=== PATIENT | female | born 1995 | race Hispanic/Latino ===

== ENCOUNTER 2017-04-22 20:01 | Emergency (ER) | payer MEDICAID ==
[2017-04-22 21:16] VITALS: BP 129/84
--- NOTE | 2017-04-22 23:14 | XRay Report ---
FINAL REPORT EXAM: XR FOREARM LT HISTORY: swelling, pain and bruising L arm s/p GLF TECHNIQUE: Left forearm two views 2 images PRIORS: None. FINDINGS: Bone mineralization appears within normal limits. There is a transverse fracture of the distal radius. There are minimally displaced fractures of the radial and ulnar diaphyses as well. Soft tissue swelling is noted in the distal forearm. IMPRESSION: 1. Traumatic distal radius fracture. 2. Traumatic fractures of the diaphyses of the radius and ulna.
[2017-04-23] MEDS ORDERED: TORADOL IM ONE (00:34)
--- NOTE | 2017-04-23 00:38 | Emergency Department Report ---
ED Upper Extremity Inj HPI - General Chief Complaint: Extremity Injury, Upper Stated Complaint: FALL/LT ARM INJJRY Source: patient Mode of arrival: Ambulatory Limitations: No Limitations - History of Present Illness Initial Comments: This is a 20-year-old female well-nourished with nontoxic or ill in appearance but presents with left arm pain status post trip and fall at home 3 days ago. Patient states she try to break the fall by landing on her palm, left. Associated symptoms includes pain that is described as aching and a 10. Patient denies any numbness, tingling, decreased range of motion, swelling, pus , drainage, redness, nausea, vomiting, chest pain or shortness of breath. Patient denies any past medical history. Allergies to Prozac. Complaint: Injury to:: left, arm -: Gradual, days(s) (3) Other Extremity Injury: Arm: Left, Forearm: Left Other Injuries: none Place: home Severity scale (0 -10): 8 Improves With: none Worsens With: none Context: fall Associated Symptoms: denies other symptoms. denies: weakness, numbness, neck pain, suspects foreign body, nausea/vomiting, heard/felt popping sensat - Related Data Previous Rx's Medication Instructions Recorded Last Taken Type HYDROcodone/APAP 7.5-325 [Mutual 1 each PO Q8HR PRN #10 tablet 04/23/17 Unknown Rx 7.5/325] Allergies Allergy/AdvReac Type Severity Reaction Status Date / Time fluoxetine HCl [From Prozac] Allergy Unknown Verified 04/22/17 21:37 ED Review of Systems ROS: Stated complaint: FALL/LT ARM INJJRY Other details as noted in HPI Constitutional: denies: chills, fever Eyes: denies: eye pain, eye discharge, vision change ENT: denies: ear pain, throat pain Respiratory: denies: cough, shortness of breath, wheezing Cardiovascular: denies: chest pain, palpitations Endocrine: no symptoms reported Gastrointestinal: denies: abdominal pain, nausea, diarrhea Genitourinary: denies: urgency, dysuria, discharge Musculoskeletal: denies: back pain, joint swelling, arthralgia Skin: denies: rash, lesions Neurological: denies: headache, weakness, paresthesias Psychiatric: denies: anxiety, depression Hematological/Lymphatic: denies: easy bleeding, easy bruising ED Past Medical Hx - Past Medical History Previous Medical History?: No - Surgical History Past Surgical History?: No - Social History Smoking Status: Never Smoker Substance Use Type: None - Medications Home Medications: Home Medications Medication Instructions Recorded Confirmed Last Taken Type HYDROcodone/APAP 7.5-325 [Mutual 1 each PO Q8HR PRN #10 tablet 04/23/17 Unknown Rx 7.5/325] ED Physical Exam - General Limitations: No Limitations General appearance: alert, in no apparent distress - Head Head exam: Present: atraumatic, normocephalic, normal inspection - Eye Eye exam: Present: normal appearance, PERRL, EOMI. Absent: scleral icterus, conjunctival injection, nystagmus, periorbital swelling, periorbital tenderness Pupils: Present: normal accommodation - ENT ENT exam: Present: normal exam, normal orophraynx, mucous membranes moist, TM's normal bilaterally, normal external ear exam - Neck Neck exam: Present: normal inspection, full ROM. Absent: tenderness, meningismus, lymphadenopathy, thyromegaly - Respiratory Respiratory exam: Present: normal lung sounds bilaterally. Absent: respiratory distress, wheezes, rales, rhonchi, stridor, chest wall tenderness, accessory muscle use, decreased breath sounds, prolonged expiratory - Cardiovascular Cardiovascular Exam: Present: regular rate, normal rhythm, normal heart sounds. Absent: bradycardia, tachycardia, irregular rhythm, systolic murmur, diastolic murmur, rubs, gallop - GI/Abdominal GI/Abdominal exam: Present: soft, normal bowel sounds. Absent: distended, tenderness, guarding, rebound, rigid, diminished bowel sounds - Rectal Rectal exam: Present: deferred - Extremities Exam Extremities exam: Present: normal inspection, full ROM, tenderness, normal capillary refill. Absent: pedal edema, joint swelling, calf tenderness - Expanded Upper Extremity Exam Left General: Present: normal inspection Shoulder Exam: Present: normal inspection, full ROM. Absent: tenderness, swelling, abrasion, laceration, ecchymosis, deformity, crepidus, dislocation, erythema, tenderness over AC joint Upper Arm exam: Present: normal inspection, full ROM. Absent: tenderness, swelling, abrasion, laceration, ecchymosis, deformity, crepidus, dislocation, erythema Elbow exam: Present: normal inspection, full ROM. Absent: tenderness, swelling , abrasion, laceration, ecchymosis, deformity, crepidus, dislocation, erythema, effusion, pain w/ pronation/supination, tenderness over radial head Forearm Wrist exam: Present: normal inspection, full ROM, tenderness, other ( Normal pules. Skin warm. Normal ROM of digits. No numbness or tingling. ). Absent: swelling, abrasion, laceration, ecchymosis, deformity, dislocation, tenderness over anatomical snuff box, pain with axial thumb loading Hand Wrist exam: Present: normal inspection, full ROM, tenderness. Absent: swelling, abrasion, laceration, ecchymosis, deformity, crepidus, dislocation, erythema, amputation, nail avulsion, subungual hematoma Neuro motor exam: Present: wrist extension intact, thumb opposition intact, thumb IP flexion intact, thumb adduction intact, fingers 2-5 abduction intact Neurosensory exam: Present: 2-point discrimination, radial nerve intact, ulnar nerve intact, median nerve intact Vascular: Present: vascular compromise, normal capillary refill, radial pulse, brachial pulse, ulnar pulse - Back Exam Back exam: Present: normal inspection, full ROM. Absent: tenderness, CVA tenderness (R), CVA tenderness (L), muscle spasm, paraspinal tenderness, vertebral tenderness, rash noted - Neurological Exam Neurological exam: Present: alert, oriented X3, CN II-XII intact, normal gait, reflexes normal - Psychiatric Psychiatric exam: Present: normal affect, normal mood - Skin Skin exam: Present: warm, dry, intact, normal color. Absent: rash ED Course Vital Signs 04/22/17 04/22/17 21:15 21:37 Temperature 98.4 F 98.4 F Pulse Rate 88 88 Respiratory 16 16 Rate Blood Pressure 129/84 Blood Pressure 129/84 [Left] O2 Sat by Pulse 99 100 Oximetry - Reevaluation(s) Reevaluation #1: 04/23/17 00:44 Patient is with 3 year old daughter and talking in full sentences. No signs of distress noted. - Consultations Consultation #1: 04/23/17 00:37 Dr. Mckeon has been consulted about patient, examined patient, and observed xray with findings of radiologist. Stated splint with f/u within 24 hours. ED Medical Decision Making - Medical Decision Making Ed course: This is a 21-year-old female that presents with traumatic distal radius and ulna fracture 1- patient was examined by myself and Dr. Mckeon. Was instructed to have the patient splint ulner gutter/sugar tong with f/u within 24 hours with orthopedic doctor. 2- Examination after splint placement: normal cap refil. Patient able to move digits. Stated "is not feel tight". Normal vascular or neurovascular compromise. 3- patient was d/c with norco and was instrcuted to follow-up with Dr. Arechiga or another orthopedic doctor within 24 hours or if symptoms such as numbness, tingling, blue colored or cool extremity, swelling, fever, chills, chest pain or shortness of breath return to the emergency room as soon as possible 4- at time time of discharge, the patient does not seem toxic or ill in appearance. No acute signs of distress noted. Patient agrees to discharge treatment plan of care. No further questions noted by the patient. Critical care attestation.: If time is entered above; I have spent that time in minutes in the direct care of this critically ill patient, excluding procedure time. ED Disposition Clinical Impression: Distal radius fracture, left Qualifiers: Encounter type: initial encounter Fracture type: closed Fracture morphology: unspecified fracture morphology Qualified Code(s): S52.502A - Unspecified fracture of the lower end of left radius, initial encounter for closed fracture Radius/ulna fracture Qualifiers: Encounter type: initial encounter Fracture type: closed Laterality: left Qualified Code(s): S52.502A - Unspecified fracture of the lower end of left radius, initial encounter for closed fracture; S52.202A - Unspecified fracture of shaft of left ulna, initial encounter for closed fracture; S52.602A - Unspecified fracture of lower end of left ulna, initial encounter for closed fracture Disposition: DC-01 TO HOME OR SELFCARE Is pt being admited?: No Does the pt Need Aspirin: No Condition: Stable Instructions: Arm Fracture in Adults (ED) Additional Instructions: Follow-up with Dr. Arechiga or another orthopedic doctor within 24 hours or if symptoms such as numbness, tingling, blue colored or cool extremity, swelling, fever, chills, chest pain or shortness of breath return to the emergency room as soon as possible. Take Mutual as prescribed for pain as needed. Do not operate any heavy machinery while taken Mutual due to drowsiness/sedation. Prescriptions: HYDROcodone/APAP 7.5-325 [Mutual 7.5/325] 1 each PO Q8HR PRN #10 tablet PRN Reason: Pain Referrals: PRIMARY CARE, [Primary Care Provider] - 3-5 Days [facility] [Outside] - 3-5 Days [facility] [Outside] - 3-5 Days ADELA ARECHIGA MD [Staff Physician] - 24 Hours Forms: Work/School Release Form(ED)
== END 2017-04-23 01:59 | disposition home or self-care (01) ==
LOC: ED 20:01
DX: S52.592A Other fractures of lower end of left radius, initial encounter for closed fracture (principal); S52.202A Unspecified fracture of shaft of left ulna, initial encounter for closed fracture; W01.0XXA Fall on same level from slipping, tripping and stumbling without subsequent striking against object, initial encounter; Y93.89 Activity, other specified; Y92.009 Unspecified place in unspecified non-institutional (private) residence as the place of occurrence of the external cause; Y99.8 Other external cause status
CPT/HCPCS: 29125; 73090; 96372; 99283; J1885

== ENCOUNTER 2018-04-18 21:41 | Emergency (ER) | payer SELFPAY ==
[2018-04-18 22:00] VITALS: BP 127/77
== END 2018-04-18 22:50 | disposition left against medical advice (07) ==
LOC: ED 21:41
DX: M25.532 Pain in left wrist (principal); Z53.21 Procedure and treatment not carried out due to patient leaving prior to being seen by health care provider